=== PATIENT | male | born 1965 | race Caucasian/White ===

== ENCOUNTER 2018-02-12 11:39 | Emergency (ER) | payer MEDICARE ==
[2018-02-12 12:06] VITALS: BMI 32.3
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
[2018-02-12 13:18] LABS: ALB/GLOB RATIO 1.2 (1.1-1.8); ALBUMIN 4.1 g/dL (3.0-4.8); ALT/SGPT 30 U/L (7-56); AST/SGOT 33 U/L (17-59); BASO # 0.01 K/mm3 (0.0-2.0); BASO % 0.1 % (0.0-3.0); BLOOD UREA NITROGEN 21 mg/dL (7-21); CALCIUM 9.6 mg/dL (8.4-10.5); EOS % 0.1 % (1.5-5.0); GFR NON-AFRICAN AMERICAN > 60; GRAN # 7.12 (1.4-6.5); GRAN % 81.7 % (50.0-68.0); HEMOGLOBIN 15.5 g/dL (14.0-18.0); LYMPH # 1.2 (1.2-3.4); LYMPH % 13.4 % (22.0-35.0); MEAN CELL VOLUME 82.3 fl (80.0-105.0); MEAN CORPUSCULAR HEMOGLOBIN 27.9 pg (25.0-35.0); MEAN CORPUSCULAR HGB CONC 33.9 g/dl (31.0-37.0); MEAN PLATELET VOLUME 9.8 fl (7.0-11.0); MONO # 0.4 (0.1-0.6); MONO % 4.7 % (1.0-6.0); RBC 5.55 10^6/uL (3.5-6.1); WHITE BLOOD COUNT 8.7 10^3/ul (4.5-11.0)
--- NOTE | 2018-02-12 13:18 | RAD ---
Date of service: 02/12/2018 HISTORY: Cough COMPARISON: No prior. FINDINGS: LUNGS: The lungs are well inflated and clear. PLEURA: No significant pleural effusion identified, no pneumothorax apparent. CARDIOVASCULAR: Normal. OSSEOUS STRUCTURES: No significant abnormalities. VISUALIZED UPPER ABDOMEN: Normal. OTHER FINDINGS: None. IMPRESSION: No active pulmonary disease.
[2018-02-12 13:29] LABS: TROPONIN I < 0.01 ng/mL
--- NOTE | 2018-02-12 14:49 | CARD ---
APPROVED REPORT Date of service: 02/12/2018 EKG Measurement Heart [id number] <Conclusion> Normal sinus rhythm Normal ECG
[2018-02-12 16:16] VITALS: BP 132/69; PULSE 78; RESP 18; TEMP 98; O2SAT 98
== END 2018-02-12 15:45 | disposition home or self-care (01) ==
LOC: ED 11:39
DX: F41.9 Anxiety disorder, unspecified (principal); R07.9 Chest pain, unspecified; R06.00 Dyspnea, unspecified; I10 Essential (primary) hypertension; Z87.891 Personal history of nicotine dependence